=== PATIENT | male | born 1945 | race Caucasian/White ===

== ENCOUNTER 2024-02-03 20:53 | Emergency (ER) | payer MEDICARE, MEDICAID ==
[~2024-02-03] VITALS: Ht 172.7 cm; Wt 82.0 kg
[2024-02-03 20:55] VITALS: O2SAT 100
[2024-02-03] MEDS: ACETAMINOPHEN 325MG TABLET PO ONE (23:58)
[2024-02-04 02:30] VITALS: BP 159/87; PULSE 60; RESP 18
[2024-02-04] MEDS ORDERED: ACET-2708 MT (04:25)
[2024-02-04 06:24] VITALS: TEMP 97.9
[2024-02-04] MEDS: ACETAMINOPHEN 325MG TABLET PO ONE (06:24)
== END 2024-02-04 07:11 | disposition home or self-care (01) ==
LOC: ER 20:53
DX: M25.562 Pain in left knee (principal); M25.561 Pain in right knee; I10 Essential (primary) hypertension; W18.39XA Other fall on same level, initial encounter; Y93.89 Activity, other specified; Y92.89 Other specified places as the place of occurrence of the external cause; Y99.8 Other external cause status
CPT/HCPCS: 29530; 73562; 99283